=== PATIENT | female | born 1970 | race Caucasian/White ===

== ENCOUNTER 2017-07-29 09:28 | Emergency (ER) | payer OTHER ==
[~2017-07-29] VITALS: Ht 162.6 cm; Wt 119.5 kg
[2017-07-29 10:00] VITALS: BP 148/91
--- NOTE | 2017-07-29 10:08 | NUR ---
PT AMBULATED TO BED 6.
--- NOTE | 2017-07-29 10:11 | NUR ---
47F BIB FAMILY C/O BL LOWER BACK PAIN, RADIATES DOWN RT THIGH, "PULLING", 05/23 X 4 DAYS; PT STATES NO TRAUMA OR INJURY TO SITE AT THIS TIME; PT STATES " I GOT UP FROM MY CHAIR AT WORK, AND IT STARTED HURTING"; PT AA&OX4, PERRLA, BL LUNG SOUNDS CLEAR, RR EVEN/UNLABORED, SKIN IS WARM/DRY/INTACT AT THIS TIME; PT STATES NO N/V/D AT THIS TIME; STEADY GAIT; PT RESTING IN BED WITH HOB ELEVATED AND IN LOWEST POSITION; POSITIONED FOR COMFORT; ER MD MADE AWARE OF STATUS. WILL CONTINUE TO MONITOR.
--- NOTE | 2017-07-29 10:28 | NUR ---
ER MD DR. CAMILO EVALUATING PT AT BEDSIDE.
[2017-07-29 10:45] VITALS: BP 139/98
--- NOTE | 2017-07-29 10:45 | NUR ---
Patient discharged with v/s stable. Written and verbal after care instructions given and explained. Patient alert, oriented and verbalized understanding of instructions. Ambulatory with steady gait. All questions addressed prior to discharge. ID band removed. Patient advised to follow up with PMD. Rx of NORCO 5MG-325MG TAB given. Patient educated on indication of medication including possible reaction and side effects. Opportunity to ask questions provided and answered.
== END 2017-07-29 10:45 | disposition home or self-care (01) ==
LOC: MED 09:28
DX: M54.41 Lumbago with sciatica, right side (principal)
CPT/HCPCS: 99283

== ENCOUNTER 2019-03-10 11:23 | Emergency (ER) | payer OTHER ==
[~2019-03-10] VITALS: Ht 162.6 cm; Wt 109.8 kg
[2019-03-10 11:28] VITALS: BP 130/72
[2019-03-10] MEDS ORDERED: IPRATROPIUM 0.02% 0.5 MG/2.5 ML NEBU INH ONE (11:45)
[2019-03-10] MEDS ORDERED: ALBUTEROL 0.083% 2.5 MG/3 ML NEBU INH ONE (11:45)
[2019-03-10] MEDS ORDERED: predniSONE 20 MG TAB PO ONE (11:45)
--- NOTE | 2019-03-10 11:56 | NUR ---
RT AT BEDSIDE TO ADMINISTER TREATMENT.
--- NOTE | 2019-03-10 11:56 | NUR ---
BIB SELF C/O GENERALIZED WILLETT, GENERAL MALAISE, BODY ACHES AND PAINS. NON PRODUCTIVE/DRY COUGH X 4 DAYS. BREATHING EVEN AND UNLABORED. +EXP WHEEZING BILAT. SKIN WARM, PINK, AND DRY. CHEST TIGHTNESS UPON COUGHING AND DEEP INSPIRATION. HX: DENIES RX: DENIES
--- NOTE | 2019-03-10 12:13 | NUR ---
PORTABLE CXR HAS BEEN COMPLETED
--- NOTE | 2019-03-10 12:28 | NUR ---
LUNG SOUNDS IMPROVED BILAT. CHEST TIGHTNESS AND HAD DECREASED 4/10. BREATHING REMAINS EVEN AND UNLABORED.
[2019-03-10 12:30] VITALS: BP 122/50
--- NOTE | 2019-03-10 12:31 | NUR ---
Patient discharged with v/s stable. Written and verbal after care instructions given and explained. Patient alert, oriented and verbalized understanding of instructions. Ambulatory with steady gait. All questions addressed prior to discharge. ID band removed. Patient advised to follow up with PMD. Rx of PREDNISONE, ALBUTEROL, TESSALON PERLES given. Patient educated on indication of medication including possible reaction and side effects. Opportunity to ask questions provided and answered.
== END 2019-03-10 12:31 | disposition home or self-care (01) ==
LOC: MED 11:23
DX: B34.9 Viral infection, unspecified (principal); J98.01 Acute bronchospasm; R03.0 Elevated blood-pressure reading, without diagnosis of hypertension; Z98.890 Other specified postprocedural states
CPT/HCPCS: 71045; 94640; 99283; J7512; J7613; J7644; Q0092